=== PATIENT | female | born 1960 | race Caucasian/White ===

== ENCOUNTER 2023-07-18 16:18 | Emergency (ER) | payer OTHER, SELFPAY ==
[2023-07-18 16:27] VITALS: BP 110/70; PULSE 64; RESP 16; TEMP 36.2; O2SAT 99; BMI 21.6
--- NOTE | 2023-07-18 16:46 | ED_ITS ---
HPI - General Adult General Date Seen: 07/18/23 Chief complaint: Skin/Abscess/Foreign Body Stated complaint: Large abscess on vagina, possibly infected Time Seen by Provider: 07/18/23 16:38 Source: patient Mode of arrival: ambulatory Limitations: no limitations History of Present Illness HPI narrative: Patient is a 63-year-old female who comes in with a painful lump on the right side of her vagina. This has been getting worse over the past several days. She is leaving on a flight to [place] tomorrow and needed to get this taking care of. She has had a previous Bartholin's gland abscess about 20 years ago on the same side. She has not had any spontaneous drainage. There has been no fevers or chills. The pain is worse when she attempts to sit or change positions. No dysuria. No vaginal bleeding. No discharge out of the ordinary. She has an appointment next week with her automobile service station attendant Dr. Khalil. Related Data Home Medications Medication Instructions Recorded Confirmed letrozole 2.5 mg tablet 2.5 mg PO DAILY 07/18/23 07/18/23 Previous Rx's Medication Instructions Recorded metronidazole 500 mg tablet 500 mg PO BID 7 days #14 tabs 07/18/23 Allergies Allergy/AdvReac Type Severity Reaction Status Date / Time amoxicillin Allergy Severe Hives Verified 07/18/23 16:26 Sulfa (Sulfonamide Allergy Severe Abdominal Verified 12/17/22 10:12 Antibiotics) Pain Review of Systems Narrative: Review of systems is as outlined above otherwise noted to be negative. PFSH PFSH Social History Smoking Status: Former smoker How often do you have a drink containing alcohol: never AUDIT-C Alcohol total score: 0 Non-prescribed substance use: former substance user Exam Narrative: Exam Narrative: Vitals noted. No abdominal tenderness or mass. Bowel sounds are normal. Vaginal exam shows a large abscess of the right labia. No cervical motion tenderness. No vaginal discharge. Const: Vital Signs, click to edit/add: Vital Signs - 24 hr 07/18/23 16:27 07/18/23 17:15 Temperature 97.1 F L Pulse Rate [Pulse Oximeter] 64 74 Respiratory Rate 16 20 Blood Pressure [Ri ght Upper Arm] 110/70 Pulse Oximetry 99 98 Oxygen Delivery Me thod Room Air Room Air Course Course Hospital Course: Patient seen and examined. We discussed the procedure for incision and drainage of this abscess. The area is numbed with 1% lidocaine with epinephrine. A 11 blade is used to enter the abscess and a copious amount of pus is drained. Her pain is immediately improved. I did not pack the area but I did make sure that the I&D site is likely to stay open for several days. We discussed oral antibiotics, Sitz baths, follow-up next week with her automobile service station attendant. Vital Signs Vital signs: Initial Vital Signs Temperature 97.1 F L 07/18/23 16:27 Temperature Source Temporal Artery Scan 07/18/23 16:27 Pulse Rate 64 07/18/23 16:27 Pulse Rhythm Regular 07/18/23 16:27 Respiratory Rate 16 07/18/23 16:27 Blood Pressure 110/70 07/18/23 16:27 Blood Pressure Mean 83 07/18/23 16:27 Blood Pressure Position Sitting 07/18/23 16:27 Pulse Oximetry 99 07/18/23 16:27 Oxygen Delivery Method Room Air 07/18/23 16:27 Vital Signs Temperature 97.1 F L 07/18/23 16:27 Pulse Rate 64 07/18/23 16:27 Respiratory Rate 16 07/18/23 16:27 Blood Pressure 110/70 07/18/23 16:27 Pulse Oximetry 99 07/18/23 16:27 Oxygen Delivery Method Room Air 07/18/23 16:27 Temperature 97.1 F L 07/18/23 16:27 Pulse Rate 74 07/18/23 17:15 Respiratory Rate 20 07/18/23 17:15 Blood Pressure 110/70 07/18/23 16:27 Pulse Oximetry 98 07/18/23 17:15 Oxygen Delivery Method Room Air 07/18/23 17:15 Discharge Plan Discharge Clinical Impression: Abscess of right Bartholin's gland Patient Disposition: Home, Self-Care Condition: Improved Additional Instructions: Warm Sitz baths twice daily. Flagyl 500 mg b.i.d. x7 days. Tylenol or ibupro fen for pain and fever. Follow-up with Dr. Khalil next week as scheduled. Prescriptions: New metronidazole 500 mg tablet 500 mg PO BID 7 Days Qty: 14 0RF No Action letrozole 2.5 mg tablet 2.5 mg PO DAILY Follow Up/Referrals: Florence Khalil MD [Primary Care Provider] - Keila Jacinto DO [Staff Physician] - Stand Alone Forms: [facility] Info Instructions Procedures I/D Type: abscess Site: bartholin's gland Pre procedure diagnosis: bartholin's gland abscess Post procedure diagnosis: Same Written consent by: patient Verification/time out: correct patient and correct site Name of person performing procedure: Florencio Hall Anesthesia I&D: lidocaine 1% and with Epi Amount of anesthesia used (mls): 4 Side (if applicable): right Technique: incised with #11 blade Irrigation: No Packing used?: none Estimated blood loss (if any): less than 5mls Conclusion: patient tolerated procedure
--- NOTE | 2023-07-18 17:05 | ED.NURSE ---
this staff member is present with the ED MD to lace the vulva on the right side and local done. Packed a 4x4 gauze in the area so will drain. has a FU with PCP on .
[2023-07-18 17:15] VITALS: PULSE 74; RESP 20; O2SAT 98
== END 2023-07-18 17:17 | disposition home or self-care (01) ==
PROVIDERS: Emergency Provider Family Medicine; PCP Family Medicine
DX: N75.1 Abscess of Bartholin's gland (principal)
CPT/HCPCS: 10060; 56420; 99282; 99283